=== PATIENT | female | born 1980 | race Caucasian/White ===

== ENCOUNTER 2022-03-28 12:46 | Outpatient (CLI) | payer OTHER, SELFPAY ==
[2022-03-28 13:50] LABS: Chloride* 108 mmol/L (96-114)
[2022-03-28 13:51] LABS: Albumin* 4.5 g/dL (3.3-5.0); Potassium* 4.6 mmol/L (3.6-5.1); Sodium* 137 mmol/L (135-149)
[2022-03-28 13:53] LABS: Carbon Dioxide* 26 mmol/L (20-32); Cholesterol* 120 mg/dL (90-199)
[2022-03-28 13:54] LABS: Alanine Aminotransferase* 17 U/L (4-35); Alkaline Phosphatase* 50 U/L (40-150); Aspartate Amino Transferase* 23 U/L (12-35); Bilirubin Total* 0.7 mg/dL (0.1-1.5); Blood Urea Nitrogen* 17 mg/dL (5-24); Calcium* 9.2 mg/dL (8.4-10.6); Creatinine* 0.8 mg/dL (0.5-1.5); Estimated Glomerular Filt Rate 95 ml/min; Glucose* 97 mg/dL (60-115); Triglycerides* 55 mg/dL (40-149)
[2022-03-28 13:55] LABS: HDL Cholesterol* 69 mg/dL (>=50); LDL Cholesterol Calculated 40 mg/dL (<100)
== END 2022-03-28 12:47 | disposition home or self-care (01) ==
PROVIDERS: PCP Physician Assistant Medical; Visit Provider Physician Assistant Medical
DX: Z01.419 Encounter for gynecological examination (general) (routine) without abnormal findings (principal); Z13.6 Encounter for screening for cardiovascular disorders
CPT/HCPCS: 80053; 80061